=== PATIENT | male | born 1995 | race Caucasian/White ===

== ENCOUNTER 2017-11-27 10:08 | Emergency (ER) | payer MEDICAID ==
[~2017-11-27] VITALS: Ht 175.3 cm; Wt 114.0 kg
[2017-11-27 10:22] VITALS: BP 134/90
[2017-11-27] MEDS ORDERED: IBUPROFEN 400MG TABLET PO ONE (10:30)
== END 2017-11-27 12:02 | disposition home or self-care (01) ==
LOC: ER 11:02
DX: S93.401A Sprain of unspecified ligament of right ankle, initial encounter (principal); F17.200 Nicotine dependence, unspecified, uncomplicated; X50.1XXA Overexertion from prolonged static or awkward postures, initial encounter; Y93.89 Activity, other specified; Y92.89 Other specified places as the place of occurrence of the external cause; Y99.8 Other external cause status
CPT/HCPCS: 73610; 99284